=== PATIENT | female | born 1965 | race Hispanic/Latino ===

== ENCOUNTER 2016-08-27 06:23 | Emergency (ER) | payer OTHER ==
[2016-08-27 06:50] VITALS: BP 141/77; PULSE 72; RESP 16; TEMP 97.7; O2SAT 100
--- NOTE | 2016-08-27 07:26 | ED PDOC ---
HPI: Back Time Seen by Provider: 08/27/16 07:08 Chief Complaint (Nursing): Back Pain Chief Complaint (Provider): Back Pain History Per: Patient History/Exam Limitations: no limitations Onset/Duration Of Symptoms: Days Current Symptoms Are (Timing): Still Present Quality Of Discomfort: "Pain" Severity: Mild Previous Symptoms: Neck Pain Associated Symptoms: None Exacerbating Factor(s): Movement Additional Complaint(s): Patient is a 50 year old female who presents to ED for evaluation of worsening neck pain since yesterday. Patient notes 2 months of neck pain due to lifting mother at home but yesterday mother fell and she re-injured the neck/upper back after helping lift her. States severe pain to lower base neck and upper back, worse with tilting head backwards. Denies numbness, weakness, head injury, incontinence or tingling. No chest pain, dyspnea. Past Medical History Reviewed: Historical Data, Nursing Documentation, Vital Signs Vital Signs: Last Vital Signs Temp 97.7 F 08/27/16 06:48 Pulse 72 08/27/16 06:48 Resp 16 08/27/16 06:48 BP 141/77 08/27/16 06:48 Pulse Ox 100 08/27/16 06:48 - Medical History PMH: Osteoporosis - Surgical History Surgical History: No Surg Hx - Family History Family History: States: Unknown Family Hx - Living Arrangements Living Arrangements: With Family - Social History Alcohol: None Drugs: Denies - Home Medications Home Medications: Ambulatory Orders Medication Instructions Recorded Ibuprofen [Motrin] 600 mg PO TID 7 Days 08/27/16 - Allergies Allergies/Adverse Reactions: Allergies Allergy/AdvReac Type Severity Reaction Status Date / Time cefazolin [From [facility]] Allergy RASH Verified 08/27/16 06:51 Review of Systems Constitutional: Negative for: Weakness Eyes: Negative for: Vision Change ENT: Negative for: Nose Discharge, Nose Congestion, Throat Pain Cardiovascular: Negative for: Chest Pain Respiratory: Negative for: Shortness of Breath Musculoskeletal: Positive for: Neck Pain, Back Pain. Negative for: Shoulder Pain, Arm Pain Skin: Negative for: Bruising Neurological: Negative for: Weakness, Numbness, Headache Physical Exam - Reviewed Nursing Documentation Reviewed: Yes Vital Signs Reviewed: Yes - Physical Exam Appears: Positive for: Non-toxic, No Acute Distress Head Exam: Positive for: ATRAUMATIC, NORMAL INSPECTION Skin: Positive for: Normal Color, Warm Eye Exam: Positive for: Normal appearance Neck: Positive for: Normal, Painless ROM, Supple Cardiovascular/Chest: Positive for: Regular Rate, Rhythm. Negative for: Murmur Respiratory: Positive for: Normal Breath Sounds. Negative for: Respiratory Distress Back: Positive for: Vertebral Tenderness (Upper central back tenderness mild near base of neck; (-) deformity ) Extremity: Positive for: Normal ROM, Other (5/5 strength b/l arms). Negative for: Tenderness, Pedal Edema, Calf Tenderness Neurologic/Psych: Positive for: Alert, parole or probation officer II-XII (grossly intact ), Oriented. Negative for: Motor/Sensory Deficits - ECG O2 Sat by Pulse Oximetry: 100 (RA) Pulse Ox Interpretation: Normal - Radiology X-Ray: Interpreted by Me, Viewed By Me X-Ray Interpretation: No Acute Disease - Progress ED Course And Treament: 853: Stable. AAOx3. Pain controlled. Pt. to fu with clinic. More range of motion. Medical Decision Making Medical Decision Making: Time: 704 Initial impression: Back pain Initial plan: -- Cervical Xray -- Tylenol #3 Scribe Attestation: Documented by Soumya Morgan acting as a scribe for Theo Guerin MD MD Scribe Attestation: All medical record entries made by the Scribe were at my direction and personally dictated by me. I have reviewed the chart and agree that the record accurately reflects my personal performance of the history, physical exam, medical decision making, and the department course for this patient. I have also personally directed, reviewed, and agree with the discharge instructions and disposition. Disposition - Clinical Impression Clinical Impression: Back strain - Patient ED Disposition Is Patient to be Admitted: No Counseled Patient/Family Regarding: Studies Performed, Diagnosis, Need For Followup, Rx Given - Disposition Referrals: [facility] [Outside] - 08/28/16 Disposition: Routine/Home Disposition Time: 08:55 Condition: STABLE Additional Instructions: Return if not better in 3 days. Prescriptions: Ibuprofen [Motrin] 600 mg PO TID 7 Days Instructions: Muscle Strain (ED) Forms: [facility] ([place])
[2016-08-27] MEDS ORDERED: Acetaminophen-Codeine 300/30 mg Tab PO STA (07:32)
[2016-08-27] MEDS ORDERED: Acetaminophen-Codeine 300/30 mg Tab ONE (07:46)
--- NOTE | 2016-08-27 13:28 | RAD ---
PROCEDURE: Cervical Spine Radiographs. HISTORY: Posttraumatic pain. COMPARISON: None. FINDINGS: BONES: Alignment maintained. No fracture. Dens Intact. DISC SPACES: No appreciable disc space narrowing. Uncovertebral hypertrophy noted at multiple mid and lower cervical levels. SOFT TISSUES: Normal. No prevertebral soft tissue swelling. OTHER FINDINGS: None. IMPRESSION: No acute findings related to/accounting for the clinical presentation. Concordant results with the preliminary interpretation rendered by the emergency department physician procedure.
== END 2016-08-27 09:31 | disposition home or self-care (01) ==
LOC: H.ER 06:23
DX: S39.012A Strain of muscle, fascia and tendon of lower back, initial encounter (principal); M81.0 Age-related osteoporosis without current pathological fracture

== ENCOUNTER 2017-07-22 08:11 | Day surgery (SDC) | payer OTHER ==
[2017-07-22] MEDS ORDERED: Lactated Ringer's 500 ML IV ONE ×2 (09:06→09:36)
[2017-07-22] MEDS ORDERED: Propofol 10 mg/ml Inj (20 ML) ONE (09:58)
[2017-07-22 11:00] VITALS: BP 109/73; O2SAT 100
[2017-07-22 11:08] VITALS: PULSE 74; RESP 15; TEMP 97.1
== END 2017-07-22 11:41 | disposition home or self-care (01) ==
LOC: H.ENDO 08:11
PROVIDERS: ATTEND Internal Medicine Gastroenterology
DX: K21.9 Gastro-esophageal reflux disease without esophagitis (principal); F32.9 Major depressive disorder, single episode, unspecified; K29.70 Gastritis, unspecified, without bleeding; M81.0 Age-related osteoporosis without current pathological fracture; K64.8 Other hemorrhoids
CPT/HCPCS: 43239; 45378; 88305; J2001; J2704; J7120